=== PATIENT | female | born 1985 | race Caucasian/White ===

== ENCOUNTER 2017-04-08 11:21 | Emergency (ER) | payer SELFPAY, MEDICAID ==
[2017-04-08] MEDS: LIDOCAINE 1% (MDV) 20 ML INJ SC (12:17)
== END 2017-04-08 12:47 | disposition home or self-care (01) ==
LOC: FTE 11:21
DX: N75.1 Abscess of Bartholin's gland (principal)
CPT/HCPCS: 56420; 99284-25

== ENCOUNTER 2018-12-08 06:54 | Inpatient (IN) | payer OTHER ==
[2018-12-08] MEDS ORDERED: AMPICILLIN 2 GM/NS (PMX) 100 ML IV (09:30)
[2018-12-08] MEDS ORDERED: BUTORPHANOL 2 MG INJ IV (09:30)
[2018-12-08] MEDS ORDERED: OXYTOCIN 30 UNITS/LR 500 ML IV (09:30)
[2018-12-08] MEDS ORDERED: MISOPROSTOL 200 MCG TAB PR (09:30)
[2018-12-08] MEDS ORDERED: CARBOPROST 250 MCG INJ IM (09:30)
[2018-12-08] MEDS ORDERED: METHYLERGONOVINE 0.2 MG INJ IM (09:30)
[2018-12-08] MEDS ORDERED: LIDOCAINE 1% (MPF) 30 ML INJ INJ (09:30)
[2018-12-08] MEDS: LACTATED RINGER'S 1,000 ML IV ×3 (09:33→19:38)
[2018-12-08] MEDS: MISOPROSTOL 50 MCG CAPSULE PO ×2 (09:40→14:38)
[2018-12-08] MEDS ORDERED: AMPICILLIN 1 GM/NS (PMX) 50 ML IV (12:30)
[2018-12-08] MEDS ORDERED: FENTAnyl 2MCG/ML-ROPIV 0.2% 100 ML (18:51)
[2018-12-08] MEDS ORDERED: FENTAnyl 2MCG/ML-ROPIV 0.2% 100 ML BAG EPI (19:00)
[2018-12-08] MEDS ORDERED: ONDANSETRON 4 MG INJ IV (19:00)
[2018-12-08] MEDS ORDERED: DIPHENHYDRAMINE 50 MG INJ IV (19:00)
[2018-12-08] MEDS ORDERED: NALOXONE (0.4 MG/ML) INJ IV (19:00)
[2018-12-08] MEDS ORDERED: MINERAL OIL LIGHT 10 ML VIAL TOP (22:00)
[2018-12-09] MEDS: OXYTOCIN 30 UNITS/LR 500 ML IV ×4 (03:36→08:07)
[2018-12-09] MEDS: LACTATED RINGER'S 1,000 ML IV* ×3 (04:08→20:08)
[2018-12-09] MEDS ORDERED: ONDANSETRON 4 MG INJ IV (04:30)
[2018-12-09] MEDS ORDERED: BENZOCAINE 20% 56 ML SPRAY TOP (04:30)
[2018-12-09] MEDS ORDERED: SENNA/DOCUSATE NA (8.6MG/50MG) TAB PO (04:30)
[2018-12-09] MEDS ORDERED: ACETAMINOPHEN 325 MG TAB PO ×2 (04:30)
[2018-12-09] MEDS ORDERED: MISOPROSTOL 200 MCG TAB PR (04:30)
[2018-12-09] MEDS ORDERED: WITCH HAZEL/GLYCERIN PAD PR (04:30)
[2018-12-09] MEDS ORDERED: OXYTOCIN 30 UNITS/LR 500 ML IV (04:30)
[2018-12-09] MEDS ORDERED: LANOLIN HPA 1 PKT TOP (04:30)
[2018-12-09] MEDS ORDERED: DIBUCAINE 1% 30 GM OINT TOP (04:30)
[2018-12-09] MEDS ORDERED: MAGNESIUM HYDROXIDE 30ML CUP PO (04:30)
[2018-12-09] MEDS ORDERED: METHYLERGONOVINE 0.2 MG INJ IM (04:30)
[2018-12-09] MEDS ORDERED: CARBOPROST 250 MCG INJ IM (04:30)
[2018-12-09] MEDS: IBUPROFEN 600 MG TAB PO ×3 (11:29→22:26)
[2018-12-10] MEDS: LACTATED RINGER'S 1,000 ML IV* ×3 (04:08→20:08)
[2018-12-10] MEDS: IBUPROFEN 600 MG TAB PO ×2 (11:41→23:17)
[2018-12-11] MEDS: IBUPROFEN 600 MG TAB PO (12:44)
== END 2018-12-11 14:15 | disposition home or self-care (01) | DRG 807 ==
LOC: OBT 06:54 → PP1 12-09 05:10 → L-D 06:55 → OBT 08:30 → L-D 08:30
PROC: 10E0XZZ Delivery of Products of Conception, External Approach (ICD-10-PCS; principal; 2018-12-09)
PROC: 3E033VJ Introduction of Other Hormone into Peripheral Vein, Percutaneous Approach (ICD-10-PCS; 2018-12-09)
DX: O48.0 Post-term pregnancy (principal); Z37.0 Single live birth; Z3A.40 40 weeks gestation of pregnancy
CPT/HCPCS: 62322; 76815; 80307; 81001; 85025; 85610; 85730; 86592; 86850; 86900; 86901; 87340; 99464